=== PATIENT | male | born 1995 ===

== ENCOUNTER 2019-05-20 14:38 | Emergency (ER) | payer BC ==
[~2019-05-20] VITALS: Ht 193 cm; Wt 159.0 kg
[2019-05-20] MEDS ORDERED: ALBUTEROL (0.083%) 2.5MG/3ML NEB HHN STA (16:25)
[2019-05-20 16:50] LABS: BASOPHILS % 0.4 % (0.0-2.0); EOSINOPHILS % 1.6 % (0.0-5.0); HEMATOCRIT. 45.2 % (42.0-52.0); HEMOGLOBIN. 15.4 g/dL (14.0-18.0); LYMPHOCYTES % 16.5 % (20.0-50.0); MEAN CORPUSCULAR HEMOGLOBIN 30.3 pg (28.0-32.0); MEAN CORPUSCULAR VOLUME 88.7 fL (80.0-94.0); MEAN PLATELET VOLUME 8.7 fl (7.4-10.4); MONOCYTES % 11.6 % (2.0-8.0); NEUTROPHILS % 69.9 % (40.0-76.0); PLATELET 238 x1000/uL (130-400); RED CELL DISTRIBUTION WIDTH 13.4 % (11.6-14.6)
[2019-05-20 16:53] LABS: CHLORIDE 105 mEq/L (98-107)
[2019-05-20] MEDS ORDERED: POTASSIUM CHLORIDE 10MEQ TABLET SR PO NR (17:00)
[2019-05-20 17:58] VITALS: BP 136/70
[2019-05-20] MEDS ORDERED: KETOROLAC TROMETHAMINE 0.5% OPHTH 3ML BOTHEYE SCH (18:00)
== END 2019-05-20 18:53 | disposition home or self-care (01) ==
LOC: ER 14:38
DX: B34.9 Viral infection, unspecified (principal); H10.89 Other conjunctivitis; F12.10 Cannabis abuse, uncomplicated
CPT/HCPCS: 36415; 71045; 80053; 83880; 85025; 87804; 94640; 99284; J7610; Z7610